=== PATIENT | male | born 1990 | race Caucasian/White ===

== ENCOUNTER 2018-03-26 16:05 | Emergency (ER) | payer MEDICAID, OTHER ==
[~2018-03-26] VITALS: Ht 182.9 cm; Wt 89.8 kg
[2018-03-26 16:11] VITALS: BP 127/78
[2018-03-26] MEDS ORDERED: IBUP-1984 PO (17:09)
== END 2018-03-26 17:29 | disposition home or self-care (01) ==
LOC: ER 16:06
DX: S42.401A Unspecified fracture of lower end of right humerus, initial encounter for closed fracture (principal); Z79.899 Other long term (current) drug therapy; V89.9XXA Person injured in unspecified vehicle accident, initial encounter; Y93.89 Activity, other specified; Y92.488 Other paved roadways as the place of occurrence of the external cause; Y99.8 Other external cause status
CPT/HCPCS: 29105; 73090; 99284; A4565

== ENCOUNTER 2020-09-22 10:24 | Emergency (ER) | payer MEDICAID, OTHER ==
[~2020-09-22] VITALS: Ht 182.9 cm; Wt 104.5 kg
[2020-09-22] MEDS ORDERED: ondansetron 4mg rapidly disintigrating tab PO ONE (10:45)
[2020-09-22] MEDS ORDERED: pantoprazole 40mg Tablet.DR PO STA (10:52)
[2020-09-22] MEDS ORDERED: diphenhydrAMINE 50 mg/ml inj IM ONE (11:00)
[2020-09-22] MEDS ORDERED: proCHLORperazine 10 MG/2 ml inj IM ONE (11:00)
[2020-09-22] MEDS ORDERED: mag hydrox/Alum hydrox/simeth 30ml oral suspension PO ONE (11:15)
[2020-09-22] MEDS ORDERED: LIDOcaine Viscous 15ml cup MM ONE (11:15)
[2020-09-22 11:18] LABS: BASOPHILS % (AUTO) 0.4 % (0-1); EOSINOPHILS # (AUTO) 0.1 X10'3 (0-0.9); EOSINOPHILS % (AUTO) 0.9 % (0-6); HEMATOCRIT 44.8 % (42.0-52.0); HEMOGLOBIN 14.9 g/dl (14.0-17.9); LYMPHOCYTES # (AUTO) 2.1 X10'3 (1.1-4.8); LYMPHOCYTES % (AUTO) 30.4 % (21-51); MEAN CORPUSCULAR HEMOGLOBIN 29.2 PG (27.0-31.0); MEAN CORPUSCULAR HGB CONC 33.2 g/dL (33.0-36.5); MEAN PLATELET VOLUME 7.2 FL (7.4-10.4); MONOCYTES # (AUTO) 0.5 X10'3 (0-0.9); MONOCYTES % (AUTO) 6.8 % (2-12); NEUTROPHILS # (AUTO) 4.2 X10'3 (1.8-7.7); NEUTROPHILS % (AUTO) 61.5 % (42-75); PLATELET COUNT 263 X10'3 (140-440); RED BLOOD COUNT 5.09 X10'6 (4.70-6.10); RED CELL DISTRIBUTION WIDTH 13.6 % (11.5-14.5); WHITE BLOOD COUNT 6.8 X10'3 (4.5-11.0)
--- NOTE | 2020-09-22 11:20 | NUR ---
pt did not want a shot. Pt said he will try to hold down meds. Obtained new PO orders.
[2020-09-22 11:26] VITALS: BP 148/103
--- NOTE | 2020-09-22 11:32 | NUR ---
PROVIDER TO BEDSIDE. PT THREW UP MEDS. PT ASKED HOW LONG LABS WILL BE AND IF COULD HURRY UP WITH DISCHARGE PAPERWORK. SAYS HE IS IMPATIENT.
[2020-09-22] MEDS ORDERED: PANT20TA18 PO (11:34)
[2020-09-22 12:03] LABS: ALANINE AMINOTRANSFERASE 32 U/L (12-78); ALBUMIN 4.6 G/DL (3.4-5.0); ALBUMIN/GLOBULIN RATIO 1.2 (1.1-1.5); ALKALINE PHOSPHATASE 84 IU/L (46-116); ANION GAP 12 (8-16); ASPARTATE AMINO TRANSFERASE 30 U/L (10-37); BILIRUBIN,TOTAL 0.5 MG/DL (0.1-1.0); BLOOD UREA NITROGEN 10 MG/DL (7-18); CALCIUM 8.9 MG/DL (8.5-10.1); CHLORIDE 109 MMOL/L (99-107); CREATININE 0.91 MG/DL (0.60-1.10); GLUCOSE 97 MG/DL (70-104); LIPASE 83 U/L (73-393); POTASSIUM 3.6 MMOL/L (3.5-5.1); SODIUM 146 MMOL/L (135-145); TOTAL PROTEIN 8.4 G/DL (6.4-8.2); eGFR > 90 ML/MIN
[2020-09-23] MEDS ORDERED: pantoprazole 40mg Tablet.DR PO SCH (07:30)
== END 2020-09-22 12:20 | disposition home or self-care (01) ==
LOC: ER 10:25
DX: K29.21 Alcoholic gastritis with bleeding (principal); F10.10 Alcohol abuse, uncomplicated; F12.90 Cannabis use, unspecified, uncomplicated; Z72.89 Other problems related to lifestyle; Z79.899 Other long term (current) drug therapy; Y90.9 Presence of alcohol in blood, level not specified
CPT/HCPCS: 36415; 80053; 83690; 85025; 99284

== ENCOUNTER → 2021-01-15 | Emergency (ER) | payer MEDICAID ==
[~2021-01-15] VITALS: Ht 182.9 cm; Wt 122.0 kg
[~2021-01-15] MED LIST: PANT20TA18 PO
[2021-01-15 19:30] VITALS: BP 127/64
== END | disposition left against medical advice (07) ==
LOC: ER 19:01
DX: T24.001A Burn of unspecified degree of unspecified site of right lower limb, except ankle and foot, initial encounter (principal); Z53.21 Procedure and treatment not carried out due to patient leaving prior to being seen by health care provider; X08.8XXA Exposure to other specified smoke, fire and flames, initial encounter; X58.XXXA Exposure to other specified factors, initial encounter; Y93.9 Activity, unspecified; Y92.9 Unspecified place or not applicable; Y99.9 Unspecified external cause status

== ENCOUNTER 2021-02-19 14:30 | Emergency (ER) | payer MEDICAID ==
[~2021-02-19] VITALS: Ht 182.9 cm; Wt 108.9 kg
[2021-02-19 14:45] VITALS: BP 163/94
[2021-02-19] MEDS ORDERED: ketorolac tromethamine 15mg/ml inj. IM ONE (15:40)
[2021-02-19] MEDS ORDERED: IBUP-1984 PO (15:44)
== END 2021-02-19 15:40 | disposition home or self-care (01) ==
LOC: ER 14:30
DX: S80.212A Abrasion, left knee, initial encounter (principal); M25.562 Pain in left knee; F12.90 Cannabis use, unspecified, uncomplicated; Z72.89 Other problems related to lifestyle; Z79.899 Other long term (current) drug therapy; V89.0XXA Person injured in unspecified motor-vehicle accident, nontraffic, initial encounter; Y93.89 Activity, other specified; Y92.89 Other specified places as the place of occurrence of the external cause; Y99.8 Other external cause status
CPT/HCPCS: 29505; 73564; 99283

== ENCOUNTER 2021-02-28 05:10 | Emergency (ER) | payer MEDICAID ==
[~2021-02-28] VITALS: Ht 177.8 cm; Wt 104.5 kg
[2021-02-28] MEDS ORDERED: ondansetron/PF 4mg/2ml inj IV STA (05:30)
[2021-02-28] MEDS ORDERED: normal saline 1000ml 1,000 ML IVB ONE (05:30)
[2021-02-28] MEDS ORDERED: pantoprazole 40 MG vial IV ONE ×2 (05:35)
[2021-02-28] MEDS ORDERED: famotidine/PF 10 mg/ml inj IV ONE ×2 (05:35)
[2021-02-28] MEDS ORDERED: pantoprazole 40MG/NS 100ML BAG 100 ML IV SCH (06:00)
[2021-02-28] MEDS ORDERED: pantoprazole 40MG/NS 100ML BAG 100 ML IV ONE (06:00)
[2021-02-28 06:51] LABS: BASOPHILS % (AUTO) 0.4 % (0-1); EOSINOPHILS % (AUTO) 0 % (0-6); HEMATOCRIT 47.6 % (42.0-52.0); HEMOGLOBIN 16.2 g/dl (14.0-17.9); LYMPHOCYTES % (AUTO) 25.4 % (21-51); MEAN CORPUSCULAR HGB CONC 34.1 g/dL (33.0-36.5); MEAN PLATELET VOLUME 7.5 FL (7.4-10.4); MONOCYTES # (AUTO) 0.5 X10'3 (0-0.9); MONOCYTES % (AUTO) 12.9 % (2-12); NEUTROPHILS # (AUTO) 2.5 X10'3 (1.8-7.7); NEUTROPHILS % (AUTO) 61.3 % (42-75); PLATELET COUNT 187 X10'3 (140-440); RED CELL DISTRIBUTION WIDTH 13.2 % (11.5-14.5)
[2021-02-28 07:12] LABS: ALANINE AMINOTRANSFERASE 40 U/L (12-78); ALBUMIN 4.3 G/DL (3.4-5.0); ALKALINE PHOSPHATASE 76 IU/L (46-116); AMYLASE 32 U/L (25-115); ANION GAP 15 (8-16); ASPARTATE AMINO TRANSFERASE 29 U/L (10-37); BILIRUBIN,TOTAL 0.7 MG/DL (0.1-1.0); BLOOD UREA NITROGEN 19 MG/DL (7-18); BUN/CREATININE RATIO 14.7 (5.4-32.0); CALCIUM 8.3 MG/DL (8.5-10.1); CHLORIDE 99 MMOL/L (99-107); CREATININE 1.29 MG/DL (0.60-1.10); ETHANOL < 0.010 GM/DL (0.0-0.010); GLUCOSE 109 MG/DL (70-104); LIPASE 100 U/L (73-393); POTASSIUM 3.2 MMOL/L (3.5-5.1); SODIUM 136 MMOL/L (135-145); TOTAL CARBON DIOXIDE 22.3 MMOL/L (24-32); TOTAL PROTEIN 8.5 G/DL (6.4-8.2); eGFR 65 ML/MIN
[2021-02-28] MEDS ORDERED: iohexol 300mg/ml 100ml inj. ONE (07:42)
[2021-02-28] MEDS ORDERED: levoFLOXACIN 500mg tablet PO ONE (09:05)
[2021-02-28] MEDS ORDERED: PROC-8 PO (09:19)
[2021-02-28] MEDS ORDERED: LEVO500T89 PO (09:19)
[2021-02-28] MEDS ORDERED: PANT-47 PO (09:19)
[2021-02-28 09:58] VITALS: BP 135/86
== END 2021-02-28 10:01 | disposition home or self-care (01) ==
LOC: ER 05:11
DX: K92.2 Gastrointestinal hemorrhage, unspecified (principal); R11.10 Vomiting, unspecified; R10.13 Epigastric pain; J18.9 Pneumonia, unspecified organism; F12.90 Cannabis use, unspecified, uncomplicated; Z72.0 Tobacco use; Z72.89 Other problems related to lifestyle; Z79.899 Other long term (current) drug therapy
CPT/HCPCS: 36415; 71045; 71260; 80053; 80320; 82150; 83690; 85025; 86885; 86900; 86901; 93005; 96361; 96365; 96366; 96375; 96376; 99285; C9113; J2405; J3490; J7030; Q9967